=== PATIENT | female | born 1955 | race Caucasian/White ===

== ENCOUNTER 2021-02-17 13:06 | Emergency (ER) | payer BC, OTHER ==
[~2021-02-17 13:06] MED LIST: ASPIR 8181 MG PO; AUGMENTIN 875-1 EACH PO; BENTYL 20MG TAB20 MG PO; ESTRADIOL0.5 MG PO; IMDUR ER TAB 3030 MG PO; LOPRESSOR 25 MG25 MG PO; NITROSTAT 0.425 TAB SL; PLAQUENIL 200200 MG PO; ZOFRAN ODT 4 MG4 MG PO
[2021-02-17 14:08] LABS: HEMOGLOBIN 14.7 gm/dl (12.3-15.3); RED BLOOD COUNT 4.69 M/UL (4.00-5.10); WHITE BLOOD COUNT 9.2 K/UL (4.5-11.0)
[2021-02-17 14:32] LABS: BUN/CREATININE RATIO 13 (0-10)
== END 2021-02-17 16:58 | disposition home or self-care (01) ==
LOC: ER1 13:06
PROVIDERS: Emergency Medicine
DX: R07.2 Precordial pain (principal); E78.5 Hyperlipidemia, unspecified; I10 Essential (primary) hypertension; Z90.49 Acquired absence of other specified parts of digestive tract; Z87.891 Personal history of nicotine dependence
CPT/HCPCS: 70491; 80053; 82550; 82553; 83874; 83880; 84484; 85025; 93005; 99285; Q9967